=== PATIENT | female | born 1965 | race Caucasian/White ===

== ENCOUNTER → 2018-06-24 | Outpatient (CLI) | payer BC ==
[~2018-06-24] MED LIST: KET10 PO; LEV500 PO; METR-1 PO; NO MEDS; PER PO; [UNRECOGNIZED DRUG - REMARK] PO
--- NOTE | 2018-06-25 13:39 | RADIOLOGY IMAGING REPORT ---
FACILITY: [facility] PATIENT NAME: JAYJAY MARTÍNEZ : [id number] MR: [id number] V: [id number] EXAM DATE: ORDERING PHYSICIAN: KISHOR KEENAN TECHNOLOGIST: Lona Rudd PROCEDURE:BILATERAL DIGITAL SCREENING MAMMOGRAM WITH CAD ASSISTED INTERPRETATION & 3D TOMOSYNTHESIS COMPARISON:Prior mammograms 03/01/10, 02/13/10. INDICATIONS:screening FINDINGS: The breasts are heterogeneously dense which can obscure small masses. The parenchymal pattern has remained stable allowing for difference in mammographic technique & patient positioning. DIAGNOSTIC CATEGORY 1--NEGATIVE. RECOMMENDATIONS: ROUTINE MAMMOGRAM AND CLINICAL EVALUATION. IMPRESSION: BIRADS 1: Negative. No significant abnormality is seen. Dictated by: Iman Berrios M.D. on 06/25/2018 at 9:07 Transcribed by: MANINDER on 06/25/2018 at 11:55 Approved by: Iman Berrios M.D. on 06/25/2018 at 13:38 [facility]
== END ==
LOC: MAMO 02:22
PROVIDERS: ATTEND Nurse Practitioner Family
DX: Z12.31 Encounter for screening mammogram for malignant neoplasm of breast (principal)
CPT/HCPCS: 77063; 77067